=== PATIENT | female | born 1995 | race Two or more races ===

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

== ENCOUNTER 2018-06-02 14:41 | Emergency (ER) | payer MEDICAID ==
[~2018-06-02] VITALS: Ht 157.5 cm; Wt 49.9 kg
[2018-06-02 14:50] VITALS: BP 122/88
== END 2018-06-02 15:14 | disposition home or self-care (01) ==
LOC: ER 14:47
DX: J40 Bronchitis, not specified as acute or chronic (principal); F32.9 Major depressive disorder, single episode, unspecified; F41.9 Anxiety disorder, unspecified; F10.10 Alcohol abuse, uncomplicated; F17.200 Nicotine dependence, unspecified, uncomplicated; Y90.9 Presence of alcohol in blood, level not specified
CPT/HCPCS: 99283; 99406; A4606; Z7610

== ENCOUNTER 2018-09-17 22:24 | Emergency (ER) | payer SELFPAY ==
--- NOTE | 2018-09-17 23:04 | NUR ---
CALLED PT'S NAME THREE TIMES IN WAITING ROOM, NO RESPONSE, WILL TRY AGAIN AT A LATER TIME.
--- NOTE | 2018-09-17 23:22 | NUR ---
CALLED PT'S NAME THREE TIMES IN WAITING ROOM, NO RESPONSE, WILL TRY AGAIN AT A LATER TIME.
--- NOTE | 2018-09-18 00:02 | NUR ---
CALLED PT'S NAME THREE TIMES IN WAITING ROOM, NO RESPONSE, WILL TRY AGAIN AT A LATER TIME.
== END 2018-09-18 00:26 | disposition left against medical advice (07) ==
LOC: ER 22:28
DX: Z53.21 Procedure and treatment not carried out due to patient leaving prior to being seen by health care provider (principal); F32.9 Major depressive disorder, single episode, unspecified; F41.9 Anxiety disorder, unspecified; F10.10 Alcohol abuse, uncomplicated; F17.200 Nicotine dependence, unspecified, uncomplicated; Y90.9 Presence of alcohol in blood, level not specified; Z60.2 Problems related to living alone

== ENCOUNTER 2021-06-11 06:49 | Emergency (ER) | payer MEDICAID ==
[~2021-06-11] VITALS: Ht 165.1 cm; Wt 59.4 kg
[2021-06-11 06:56] VITALS: BP 124/67
== END 2021-06-11 07:13 | disposition home or self-care (01) ==
LOC: ER 06:52
DX: Z48.00 Encounter for change or removal of nonsurgical wound dressing (principal); F19.90 Other psychoactive substance use, unspecified, uncomplicated; F32.9 Major depressive disorder, single episode, unspecified; F41.9 Anxiety disorder, unspecified; Z60.2 Problems related to living alone

== ENCOUNTER 2021-11-08 14:07 | Emergency (ER) | payer SELFPAY ==
[~2021-11-08] VITALS: Ht 160 cm; Wt 40.8 kg
--- NOTE | 2021-11-08 14:15 | NUR ---
26 YRS femal c/o pain and redness swalen on rt arm warm to touch no open skin seen by DR. PERALTA PLAIN TO D/C HOME WITH PO ANTIBOTIC
[2021-11-08] MEDS ORDERED: SULF1TAB48 PO (14:28)
[2021-11-08] MEDS ORDERED: CEPH500C2 PO (14:28)
--- NOTE | 2021-11-08 14:36 | NUR ---
D/C INSTRACTION GIVEN TO PT FULLY AND VERBLIZED UNDERSTOOD D/C HOME WITH RX AND FALLOW UP CARE
[2021-11-08 14:44] VITALS: BP 99/65
== END 2021-11-08 14:50 | disposition home or self-care (01) ==
LOC: ER 14:11
DX: L03.114 Cellulitis of left upper limb (principal); L03.113 Cellulitis of right upper limb; F32.A Depression, unspecified; F41.9 Anxiety disorder, unspecified; Z60.2 Problems related to living alone